=== PATIENT | male | born 1950 | race Caucasian/White ===

== ENCOUNTER → 2024-12-01 | Emergency (ER) | payer MEDICARE ==
[~2024-12-01] VITALS: Ht 180.3 cm; Wt 116.1 kg
[~2024-12-01] MED LIST: ACET-2079 PO; CEPH500T PO
--- NOTE | 2024-12-01 15:07 | NUR ---
NO TRAUMA ALERT NEEDED AT THIS TIME PER DR. BUNCH.
--- NOTE | 2024-12-01 15:11 | ERN ---
General Chief Complaint: Laceration/Avulsion Stated Complaint: LACERATION TO HEAD Time Seen by MD: 14:59 History of Present Illness Initial Comments 74-year-old male had a ground level mechanical fall and hit the back of his head. No loss of consciousness. No confusion. He has a laceration on the scalp with bleeding controlled. Takes Plavix. Allergies: Coded Allergies: No Known Drug Allergies (Unverified Allergy, Unknown, 10/01/24) Home Meds Active Scripts Acetaminophen with Codeine (Acetaminophen-Cod #3 Tablet) 300 Mg-30 Mg Tablet, 1 TAB PO Q6H PRN for SEVERE PAIN, #15 TAB 0 Refills Prov:CRISTIAN VILLAVICENCIO Kirti [employer] 05/22/24 Cephalexin (Cephalexin) 500 Mg Tablet, 1 TAB PO TID for 7 Days, #21 TAB 0 Refills Prov:CRISTIAN VILLAVICENCIO Kirti [employer] SERV[employer] SUPERVISOR 05/22/24 Past Medical History Past Medical History: CVA, Diabetes-Type II Past Surgical History: None ROS Dictation CONSTITUTIONAL: No chills, no fever, no weakness, no diaphoresis, no malaise. HEAD/FACE: No signs of trauma. EENT: No eye pain, no blurred vision, no tearing, no double vision, no ear pain, no ear discharge, no nose pain, no nasal congestion, no throat pain, no throat swelling, no mouth pain. RESPIRATORY: No cough, no orthopnea, no SOB, no stridor, no wheezing. CARDIOVASCULAR: No chest pain, no edema, no palpitations, no syncope. GASTROINTESTINAL/ABDOMINAL: No abdominal pain, no constipation, no diarrhea, no nausea, no vomiting. GENITOURINARY: No abnormal discharge, no dysuria, no frequent urination, no hematuria. No complaints of pain in the genitals. MUSCULOSKELETAL: No back pain, no gout, no joint pain, no joint swelling, no muscle pain, no muscle stiffness, no neck pain. INTEGUMENTARY: No change in color, no change in hair/nails, no dryness, no lesion, no lumps, no rash. NEUROLOGICAL/PSYCH: No anxiety, not depressed, no emotional problem, no headache, no numbness, no pre-existing deficit, no history of seizures, no tremors, no weakness. HEMATOLOGIC/LYMPHATIC: Not anemic, no history of blood clots, no apparent bleeding, no bruising, glands not swollen. All Systems Negative, Except as Noted. Physical Exam Physical Exam Dictation VITAL SIGNS: Reviewed. GENERAL APPEARANCE: Alert, oriented x3, no acute distress, obese. HEAD AND FACE: Scalp laceration of the back of the head and proximally 2 in EYES: PERRL, pink conjunctivas, eyelid no trauma, anterior chamber clear. EARS: Pinnas intact and no signs of trauma or erythema. Ear canals clear and no discharge. TMs no erythema. NOSE: No discharge, no bleeding. OROPHARYNX: Mouth normal, teeth no caries, tongue pink. Pharynx clear, no erythema. Tonsils no exudates, no abscesses noted. Mucous membrane moist. NECK: Supple, non-tender, no thyromegaly, no masses, no JVD, no bruits. BREAST: Deferred. CHEST: No tenderness, no crepitus, no paradoxical movement, no retractions. LUNGS: Clear, well-ventilated, symmetric, no rales, no wheezing, no rhonchi, no stridor, good breath sounds bilaterally. HEART: Regular rate, regular rhythm, no murmur, no gallops. VASCULAR: No peripheral edema. ABDOMEN: Soft, positive bowel sounds, nondistended, no guarding, nontender, no rebound, no masses no hepatomegaly, no splenomegaly, no Sung's sign, no hernias. RECTAL: Deferred. GENITAL: Deferred. NEUROLOGICAL: Normal speech, gross motor function intact, gross sensory function intact. MUSCULOSKELETAL: Neck nontender, full range of motion, back nontender, full range of motion. EXTREMITIES: Nontender, full range of motion. SKIN: Color pink, dry, no turgor, no rash, no lacerations, no abrasions, no contusions. LYMPHATICS: Deferred. [facility] CC: Scalp laceration Historian: Patient Comorbidities: On Flomax Limitations by social determinants of health: None Differential diagnosis: Head injury, scalp laceration, other Patient not on any anticoagulation, does not meet trauma other criteria GCS 15 cranial nerves are intact no signs of significant head injury no repetitive questioning. He has a laceration on the back of the scalp. Laceration 2 in superficial linear clean. Wound was cleaned. Three camila placed good approximation. See the procedure note. We will DC with a conservative measures and PCP follow up ED Course Vital Signs Date Time Temp Pulse Resp B/P (MAP) Pulse Ox O2 Delivery O2 Flow Rate FiO2 12/01/24 14:59 98.2 83 19 123/61 99 Room Air 0 Laceration/Wound Repair Laceration/Wound Repair : Wound Location: head Wound Length (cm): 5 Wound's Depth, Shape: superficial Wound Explored: clean Betadine Prep?: Yes Wound Debrided: minimal Wound Repaired With: camila Number of Sutures: 3 DX & DISP Disposition: Discharge Departure Impression: Primary Impression: Scalp laceration Condition: Stable Additional Instructions: You had three camila placed in your scalp laceration. These will need to be removed in 10 days or so. You will need to return to the emergency department or follow up with your primary doctor for staple removal. Keep the wound clean with soap and water. Monitor for signs of infection. If the wound bleeds a bit, apply direct pressure until the bleeding stops. Return to the emergency department as needed. Referrals: OSWALDO LEWIS (PCP) SAMUEL BUNCH DO Dec 01, 2024 15:11
[2024-12-01 15:17] VITALS: BP 120/64; PULSE 83; RESP 16; TEMP 98.2; O2SAT 99
== END ==
LOC: EDH 14:56
DX: E11.9 Type 2 diabetes mellitus without complications (principal); S01.01XA Laceration without foreign body of scalp, initial encounter; Z86.73 Personal history of transient ischemic attack (TIA), and cerebral infarction without residual deficits; Z79.02 Long term (current) use of antithrombotics/antiplatelets; W01.10XA Fall on same level from slipping, tripping and stumbling with subsequent striking against unspecified object, initial encounter; Y93.89 Activity, other specified; Y92.89 Other specified places as the place of occurrence of the external cause; Y99.8 Other external cause status
CPT/HCPCS: 12002; 99282

== ENCOUNTER 2024-12-12 11:12 | Emergency (ER) | payer MEDICARE ==
[~2024-12-12] VITALS: Ht 180.3 cm; Wt 117.0 kg
[2024-12-12 11:14] VITALS: BP 112/65; PULSE 67; RESP 20; TEMP 98
--- NOTE | 2024-12-12 11:25 | ERN ---
ED Note History of Present Illness Stated Complaint: STAPLE REMOVAL Chief Complaint: Suture/Staple Removal Time Seen by MD: 11:15 Dictation: PATIENT IS A 74-YEAR-OLD MALE HERE FOR ENCOUNTER TO REMOVE CAMILA. HE IS STATUS POST A SAME LEVEL FALL ON 12/01 AND HAS A OCCIPITAL LACERATION WITH THREE SMALL CAMILA. WELL APPROXIMATED NO INFLAMMATION NO FEVER NO CHILLS NO NAUSEA VOMITING. Allergies: Coded Allergies: No Known Drug Allergies (Unverified Allergy, Unknown, 10/01/24) Home Meds Active Scripts Acetaminophen with Codeine (Acetaminophen-Cod #3 Tablet) 300 Mg-30 Mg Tablet, 1 TAB PO Q6H PRN for SEVERE PAIN, #15 TAB 0 Refills Prov:CRISTIAN VILLAVICENCIO [employer]ILER 05/22/24 Cephalexin (Cephalexin) 500 Mg Tablet, 1 TAB PO TID for 7 Days, #21 TAB 0 Refills Prov:CRISTIAN VILLAVICENCIO [employer] OILER 05/22/24 Past Medical History Past Medical History: CVA, Diabetes-Type II Surgical History: None RN Note Reviewed/Agreed w/PFSH: Yes Review of System Dictation CONSTITUTIONAL: NEGATIVE EXCEPT FOR HPI HEAD/FACE: NEGATIVE EXCEPT FOR HPI OCCIPITAL LACERATION WITH THREE CAMILA WELL NAPROXEN EENT: NEGATIVE EXCEPT FOR HPI RESPIRATORY: NEGATIVE EXCEPT FOR HPI GASTROINTESTINAL/ABDOMINAL: NEGATIVE EXCEPT FOR HPI GENITOURINARY: NEGATIVE EXCEPT FOR HPI MUSCULOSKELETAL: NEGATIVE EXCEPT FOR HPI INTEGUMENTARY: NEGATIVE EXCEPT FOR HPI NEUROLOGICAL/PSYCH: NEGATIVE EXCEPT FOR HPI HEMATOLOGIC/LYMPHATIC: NEGATIVE EXCEPT FOR HPI ALL SYSTEMS NEGATIVE, EXCEPT NOTED ABOVE. 13 POINT REVIEW OF SYSTEMS ASSESSED AND ALL NEGATIVE EXCEPT FOR ABOVE. Initial Vital Sign VS Vital Signs Date Time Temp Pulse Resp B/P (MAP) Pulse Ox O2 Delivery O2 Flow Rate FiO2 12/12/24 11:14 98.1 67 20 112/65 99 Room Air Physical Exam Dictation VITAL SIGNS REVIEWED GENERAL APPEARANCE: ALERT, ORIENTED X 3, NO ACUTE DISTRESS, WELL DEVELOPED, NOURISHED. HEAD AND FACE: NON-TRAUMATIC. WELL GRANULATED OCCIPITAL LACERATION WITH THREE SMALL CAMILA. NO INFLAMMATION NO SWELLING. NO DRAINAGE EYES: PERRL, PINK CONJUNCTIVAS, EYELID NO TRAUMA, ANTERIOR CHAMBER WITH ARCUS SENILIS. EARS: PINNAS INTACT AND NO SIGNS OF TRAUMA OR ERYTHEMA EAR CANALS CLEAR AND NO DISCHARGE TM NO ERYTHEMA NOSE: NO DISCHARGE, NO BLEEDING. OROPHARYNX: MOUTH NORMAL, TONGUE PINK, PHARYNX CLEAR,NO ERYTHEMA, TONSILS NO EXUDATES, NO ABSCESSES NOTED, MUCOUS MEMBRANE MOIST NECK: SUPPLE, NON-TENDER, NO THYROMEGALY, NO MASSES, NO JVD, NO BRUITS BREAST:DEFERRED CHEST:NO TENDERNESS, NO CREPITUS, NO PARADOXICAL MOVEMENT, NO RETRACTIONS LUNGS:CLEAR, WELL-VENTILATED, SYMMETRIC, NO RALES, NO WHEEZING, NO RHONCHI, NO STRIDOR, GOOD BREATH SOUNDS BILATERALLY HEART: REGULAR RATE, REGULAR RHYTHM, NO MURMUR, NO GALLOPS VASCULAR: NO PERIPHERAL EDEMA, ABDOMEN: SOFT, POSITIVE BOWEL SOUNDS, NONDISTENDED, NO GUARDING, NONTENDER, NO REBOUND, NO MASSES NO HEPATOMEGALY, NO SPLENOMEGALY, NO PEREZ'S SIGN, NO HERNIAS. RECTAL: DEFERRED GENITAL: DEFERRED NEUROLOGICAL: NORMAL SPEECH, MOTOR FUNCTION INTACT, SENSORY FUNCTION INTACT MUSCULOSKELETAL: NECK NONTENDER, FULL RANGE OF MOTION, BACK NONTENDER, FULL RANGE OF MOTION, EXTREMITIES: NONTENDER, FULL RANGE OF MOTION SKIN: COLOR PINK, DRY, NO TURGOR, NO RASH, NO LACERATIONS, NO ABRASIONS, NO CONTUSIONS. LYMPHATIC: DEFERRED Results (Laboratory/Radiology) Labs Reviewed?: Yes ED Course ED Course Vital Signs Date Time Temp Pulse Resp B/P (MAP) Pulse Ox O2 Delivery O2 Flow Rate FiO2 12/12/24 11:14 98.1 67 20 112/65 99 Room Air Medical Decision Making MDM MEDICAL DISCHARGE MAKING BASED ON ENCOUNTER FOR REMOVAL OF CAMILA TO OCCIPITAL LACERATION CAMILA WERE REMOVED INTACT STERI-STRIPS APPLIED PATIENT TOLERATED WELL Procedure Procedure Dictation: 1120/PROCEDURE EXPLAINED TO PATIENT HE AGREED TO PROCEED THREE CAMILA REMOVED FROM OCCIPITAL LACERATION INTACT STERI-STRIPS APPLIED PATIENT TOLERATED WELL DX & DISP Disposition: Discharge Departure Impression: Primary Impression: Encounter for removal of camila Condition: Stable Additional Instructions: FOLLOW-UP WITH PRIMARY CARE PROVIDER IN 1 TO 2 DAYS. TAKE MEDICATIONS DIRECTED HERE IN THE EMERGENCY ROOM. OKAY TO CONTINUE HOME MEDICATIONS UNLESS OTHERWISE DISCUSSED DURING YOUR VISIT IN THE EMERGENCY ROOM TODAY. RETURN TO YOUR NEAREST EMERGENCY ROOM IF SYMPTOMS WORSEN OR IF THERE IS NO IMPROVEMENT. CALL 911 IF YOU NEED IMMEDIATE ASSISTANCE. TAKE TYLENOL OR MOTRIN [id number] NEEDED AND IF NO CONTRAINDICATIONS ARE PRESENT. INCREASE ORAL HYDRATION. A WOUND CULTURE OR URINE CULTURE WAS ORDERED HERE IN THE [facility] ROOM DEPARTMENT PLEASE FOLLOW-UP WITH PRIMARY CARE PROVIDER AND ADVISE THEM TO GET REPEAT PORTS FROM OUR FACILITY. IF YOU HAD ANY MEL WRAP/SPLINTS THAT WERE APPLIED HERE, PLEASE DO NOT REMOVE THEM UNTIL YOU SEE YOUR PRIMARY CARE OR SPECIALTY. SEE YOUR PRIMARY CARE DOCTOR FOR FOLLOW UP. Referrals: OSWALDO LEWIS (PCP) Time of Disposition: 11:24 I have reviewed the case, and I agree with CRISTIAN VILLAVICENCIO Dec 12, 2024 11:25
--- NOTE | 2024-12-12 11:28 | NUR ---
X3 CEE REMOVED FROM CROWN OF HEAD BY CRISTIAN VILLAVICENCIO NP AND APPLIED X3 STERI STIPS. PT TOLERATED WELL.
== END 2024-12-12 11:34 | disposition home or self-care (01) ==
LOC: EDH 11:12
DX: S01.01XD Laceration without foreign body of scalp, subsequent encounter (principal); Z48.02 Encounter for removal of sutures; E11.9 Type 2 diabetes mellitus without complications; X58.XXXD Exposure to other specified factors, subsequent encounter; Z86.73 Personal history of transient ischemic attack (TIA), and cerebral infarction without residual deficits
CPT/HCPCS: 99282